=== PATIENT | female | born 1995 | race Caucasian/White ===

== ENCOUNTER 2019-08-25 06:41 | Emergency (ER) | payer OTHER ==
[~2019-08-25] VITALS: Ht 162.6 cm; Wt 74.8 kg
[2019-08-25] MEDS ORDERED: ATENOLOL25 MG (07:07)
== END 2019-08-25 09:53 | disposition home or self-care (01) ==
LOC: ER 06:41
DX: R42 Dizziness and giddiness (principal); R07.89 Other chest pain; F06.4 Anxiety disorder due to known physiological condition